=== PATIENT | male | born 1985 | race African-American/Black ===

== ENCOUNTER 2025-02-17 13:27 | Emergency (ER) | payer OTHER ==
[~2025-02-17] VITALS: Ht 193 cm; Wt 91.0 kg
[~2025-02-17 13:27] MED LIST: ONDA4TAB50 MT
[2025-02-17 13:50] VITALS: O2SAT 99
[2025-02-17] MEDS: TETRACAINE 0.5% OPHTH DROPS 4ML BOTHEYE ONE (15:13)
[2025-02-17] MEDS: FLUORESCEIN SODIUM 1MG/STRIP RIGHTEYE ONE (15:13)
[2025-02-17] MEDS ORDERED: OCUFLX RIGHTEYE (18:11)
[2025-02-17] MEDS ORDERED: GANC5GEL2 RIGHTEYE (18:11)
[2025-02-17 18:35] VITALS: BP 130/99; PULSE 72; RESP 16; TEMP 36.8; O2SAT 99
== END 2025-02-17 18:36 | disposition home or self-care (01) ==
LOC: ER 13:27
DX: B00.52 Herpesviral keratitis (principal); H57.11 Ocular pain, right eye; F10.90 Alcohol use, unspecified, uncomplicated; Y90.9 Presence of alcohol in blood, level not specified
CPT/HCPCS: 99283